=== PATIENT | male | born 1985 | race Caucasian/White ===

== ENCOUNTER → 2019-11-22 09:11 | Outpatient (BNVA) | payer OTHER, SELFPAY | PROVIDERS: PCP Internal Medicine; Visit Provider Internal Medicine Pulmonary Disease | DX: Z13.89 Encounter for screening for other disorder (principal) | CPT/HCPCS: 90686 ==

== ENCOUNTER 2019-11-29 | Outpatient (REF) | payer OTHER, SELFPAY | END 2019-11-29 00:01 | disposition home or self-care (01) | LOC: HO.MDS | PROVIDERS: PCP Internal Medicine; Visit Provider Internal Medicine Pulmonary Disease | DX: J45.50 Severe persistent asthma, uncomplicated (principal) | CPT/HCPCS: J2357 ==

== ENCOUNTER 2019-12-13 09:33 | Outpatient (REF) | payer OTHER, SELFPAY | END 2019-12-13 09:34 | disposition home or self-care (01) | LOC: HO.MDS 09:33 | PROVIDERS: PCP Internal Medicine; Visit Provider Internal Medicine Pulmonary Disease | DX: J45.50 Severe persistent asthma, uncomplicated (principal) | CPT/HCPCS: 96372; J2357 ==

== ENCOUNTER 2019-12-27 09:41 | Outpatient (REF) | payer OTHER, SELFPAY | END 2019-12-27 09:42 | disposition home or self-care (01) | LOC: HO.MDS 09:41 | PROVIDERS: PCP Internal Medicine; Visit Provider Internal Medicine Pulmonary Disease | DX: J45.909 Unspecified asthma, uncomplicated (principal) | CPT/HCPCS: 96372; J2357 ==

== ENCOUNTER 2020-01-10 09:34 | Outpatient (REF) | payer OTHER, SELFPAY | END 2020-01-10 09:35 | disposition home or self-care (01) | LOC: HO.MDS 09:34 | PROVIDERS: PCP Internal Medicine; Visit Provider Internal Medicine Pulmonary Disease | DX: J45.909 Unspecified asthma, uncomplicated (principal) | CPT/HCPCS: 96372; J2357 ==

== ENCOUNTER 2020-01-24 09:28 | Outpatient (REF) | payer OTHER, SELFPAY | END 2020-01-24 09:29 | disposition home or self-care (01) | LOC: HO.MDS 09:28 | PROVIDERS: PCP Internal Medicine; Visit Provider Internal Medicine Pulmonary Disease | DX: J45.909 Unspecified asthma, uncomplicated (principal) | CPT/HCPCS: 96372; J2357 ==

== ENCOUNTER 2020-02-07 09:44 | Outpatient (REF) | payer OTHER, SELFPAY | END 2020-02-07 09:45 | disposition home or self-care (01) | LOC: HO.MDS 09:44 | PROVIDERS: PCP Internal Medicine; Visit Provider Internal Medicine Pulmonary Disease | DX: J45.50 Severe persistent asthma, uncomplicated (principal) | CPT/HCPCS: 96372; J2357 ==

== ENCOUNTER 2020-02-24 13:10 | Outpatient (REF) | payer OTHER, SELFPAY | END 2020-02-24 13:11 | disposition home or self-care (01) | LOC: HO.MDS 13:10 | PROVIDERS: PCP Internal Medicine; Visit Provider Internal Medicine Pulmonary Disease | DX: J45.50 Severe persistent asthma, uncomplicated (principal) | CPT/HCPCS: 96372; J2357 ==

== ENCOUNTER → 2020-03-06 10:51 | Outpatient (BNVA) | payer OTHER, SELFPAY | PROVIDERS: PCP Internal Medicine; Visit Provider Internal Medicine Pulmonary Disease | DX: Z76.89 Persons encountering health services in other specified circumstances (principal) ==

== ENCOUNTER 2020-03-13 09:49 | Outpatient (REF) | payer OTHER, SELFPAY | END 2020-03-13 09:50 | disposition home or self-care (01) | LOC: HO.MDS 09:49 | PROVIDERS: PCP Internal Medicine; Visit Provider Internal Medicine Pulmonary Disease | DX: J45.50 Severe persistent asthma, uncomplicated (principal) | CPT/HCPCS: 96372; J2357 ==

== ENCOUNTER 2020-03-27 09:45 | Outpatient (REF) | payer OTHER, SELFPAY | END 2020-03-27 09:46 | disposition home or self-care (01) | LOC: HO.MDS 09:45 | PROVIDERS: PCP Internal Medicine; Visit Provider Internal Medicine Pulmonary Disease | DX: J45.50 Severe persistent asthma, uncomplicated (principal) | CPT/HCPCS: 96372; J2357 ==

== ENCOUNTER 2020-04-10 09:38 | Outpatient (REF) | payer OTHER, SELFPAY | END 2020-04-10 09:39 | disposition home or self-care (01) | LOC: HO.MDS 09:38 | PROVIDERS: Visit Provider Internal Medicine Pulmonary Disease | DX: J45.50 Severe persistent asthma, uncomplicated (principal) | CPT/HCPCS: 96372; J2357 ==

== ENCOUNTER 2020-04-24 10:02 | Outpatient (REF) | payer OTHER, SELFPAY | END 2020-04-24 10:03 | disposition home or self-care (01) | LOC: HO.MDS 10:02 | PROVIDERS: Visit Provider Internal Medicine Pulmonary Disease | DX: J45.50 Severe persistent asthma, uncomplicated (principal) | CPT/HCPCS: 96372; J2357 ==

== ENCOUNTER 2020-05-26 11:46 | Outpatient (REF) | payer OTHER, SELFPAY ==
[2020-05-26 12:27] LABS: MANUAL DIFF FLAG NO
[2020-05-26 12:31] LABS: Basophils Absolute Auto 0.1 X10*3/uL (0.0-0.2); Basophils Percent Auto 0.6 % (0-2); Eosinophils Absolute Auto 0.1 X10*3/uL (0.0-0.4); Eosinophils Percent Auto 1.5 % (0-4); Hematocrit 51.5 % (42-52); Hemoglobin 16.9 g/dl (14.0-18.0); Imm Gran Abs Auto 0.06 X10*3/uL (0.00-0.03); Imm Gran Pct Auto 0.6 % (0.0-0.4); Lymphocytes Absolute Auto 1.3 X10*3/uL (1.2-4.9); Lymphocytes Percent Auto 13.4 % (20-40); Mean Corpuscular HGB Conc 32.8 g/dl (31.0-36.0); Mean Corpuscular Hemoglobin 30.7 pg (27.0-33.0); Mean Corpuscular Volume 93.5 fL (80-98); Mean Platelet Volume 11.2 fL (9.4-12.4); Monocytes Absolute Auto 0.7 X10*3/uL (0.1-1.2); Monocytes Percent Auto 7.8 % (2-11); Neutrophils Absolute Auto 7.2 X10*3/uL (2.0-8.3); Neutrophils Percent Auto 76.1 % (45-73); Platelet Count 286 X10*3/uL (160-400); Red Blood Count 5.51 X10*6/uL (4.60-5.80); Red Cell Distribution Width 13.5 % (11.0-16.0); White Blood Count 9.5 X10*3/uL (4.8-10.8)
== END 2020-05-26 11:47 | disposition home or self-care (01) ==
LOC: HO.LAB 11:46
PROVIDERS: PCP Internal Medicine; Visit Provider Internal Medicine Pulmonary Disease
DX: J30.89 Other allergic rhinitis (principal)
CPT/HCPCS: 36415; 85025

== ENCOUNTER → 2020-08-21 11:02 | Outpatient (BNVA) | payer OTHER, SELFPAY | PROVIDERS: PCP Internal Medicine; Visit Provider Internal Medicine Pulmonary Disease ==

== ENCOUNTER → 2020-10-02 09:56 | Outpatient (BNVA) | payer OTHER, SELFPAY | PROVIDERS: PCP Internal Medicine; Visit Provider Internal Medicine Pulmonary Disease ==

== ENCOUNTER → 2021-03-02 13:06 | Outpatient (BNVA) | payer OTHER, SELFPAY | PROVIDERS: PCP Internal Medicine; Visit Provider Internal Medicine Pulmonary Disease | DX: J45.50 Severe persistent asthma, uncomplicated (principal); J30.89 Other allergic rhinitis; Z79.899 Other long term (current) drug therapy | CPT/HCPCS: 94618 ==

== ENCOUNTER 2022-10-07 15:31 | Outpatient (REF) | payer OTHER, SELFPAY ==
[2022-10-07 18:27] LABS: Alanine Aminotransferase 40 U/L (0-40); Albumin Level 4.4 g/dL (3.5-5.0); Alkaline Phosphatase 42 U/L (39-117); Anion Gap 11 (12-20); Aspartate Amino Transferase 24 U/L (5-37); Bilirubin Direct 0.2 mg/dL (0.0-0.5); Bilirubin Total 0.4 mg/dL (0.0-1.0); Blood Urea Nitrogen 18 mg/dL (9-16); Calcium 9.8 mg/dL (8.4-10.2); Carbon Dioxide 28 mmol/L (22-29); Chloride 106 mmol/L (96-108); Estimated Glomerular Filt Rate > 60; Glucose Random 68 mg/dL (60-115); Potassium 3.3 mmol/L (3.3-5.1); Sodium 142 mmol/L (135-145); Total Protein 7.3 g/dL (6.5-8.0)
== END 2022-10-07 15:32 | disposition home or self-care (01) ==
LOC: HO.CHCLDS 15:31
PROVIDERS: Visit Provider Internal Medicine
DX: I10 Essential (primary) hypertension (principal)
CPT/HCPCS: 36415; 80048; 80076

== ENCOUNTER 2023-02-10 09:25 | Outpatient (AMB) | payer OTHER, SELFPAY ==
[2023-02-10 09:30] VITALS: BP 122/84; PULSE 72; O2SAT 97; BMI 28.0
--- NOTE | 2023-02-10 09:30 | A.OFFVIS_ITS ---
Intake Vital Signs 02/10/23 09:30 Height 6 ft 2 in Weight 218 lb 4.122 oz BMI 28.0 BP 122/84 Blood Pressure Location Rt brachial Position Sitting Pulse 72 Pulse Source Doppler Pulse Oximetry (%) 97 Oxygen Delivery Method Room Air Intake Visit Reasons: Asthma Allergies No Known Allergies [No Known Allergies*] Allergy (Verified 02/10/23 09:34) HPI Asthma HPI Details 37-year-old gentleman, former approximat lee 10 pack year smoker, quit 2018 followed for environmental and seasonal allergies and severe persistent asthma, diagnosed at 7 years of age.? He has been using Advair 500, Singulair, and albuterol MDI, previously with good control of his symptoms. However, recently he has ran out of Advair in his symptoms have not been well controlled. Though, he denies an acute exacerbation. [facility] Family History (Updated 11/16/19 @ 10:22 by Brenda Ayers, SCIENCE TE[employer]) Other No family history of chronic obstructive pulmonary disease Social History Years Smoked: 8-10 years ago Review of Systems Const Denies daytime sleepiness, Denies excessive sweating, Denies fatigue, Denies fever(s), Denies lethargy, Denies malaise, Denies night sweats, Denies snoring and Denies weight loss Eyes Denies blurry vision and Denies itchy eyes ENT Denies nasal congestion, Denies post nasal drip, Denies sinus pain, Denies sinus pressure and Denies other ( Thrush) Card Denies chest pain, Denies pedal edema, Denies dyspnea, Denies orthopnea and Denies paroxysmal nocturnal dyspnea Resp Denies cough, Denies hemoptysis, Denies excessive phlegm production, Denies dyspnea, Denies snoring and Denies wheezing GI Denies abdominal pain and Denies heartburn Musc Denies myalgias, Denies arthralgias and Denies joint swelling Skin/Breast Denies rash Neuro Denies memory loss and Denies seizure-like activity Psych Denies abnormal sleep pattern, Denies anxiety and Denies memory loss Endo Denies excessive sweating, Denies fatigue and Denies heat intolerance Gregory/Lymph Denies easy bruising Aller/Immun Denies itchy eyes, Denies seasonal rhinorrhea and Denies wheezing Physical Exam Vital Signs: Last Vital Signs Pulse 72 02/10/23 09:30 BP 122/84 02/10/23 09:30 Pulse Ox 97 02/10/23 09:30 Oxygen Delivery Method Room Air 02/10/23 09:30 BMI result Body Mass Index 28.0 Const General: no acute distress and alert Nutritional Appearance: not obese Orientation/consciousness: Other orientation findings ( oriented) HEENT Head: Yes atraumatic Eyes General: appearance normal, both eyes and all related structures Sclerae: sclerae normal EOM: EOMs intact bilaterally Neck Neck: Yes supple Lymphatic: no lymphadenopathy noted Resp Effort & Inspection: normal respiratory effort and no use of accessory muscles Auscultation: clear to auscultation bilaterally Cardio Rate: regular rate Rhythm: regular rhythm Heart sounds: no gallops, no murmurs and no rubs Skin General skin exam: other ( warm) Extrem General: No clubbing, No cyanosis and No edema Assessment & Plan Assessment & Plan (1) Severe persistent allergic asthma: Code(s): J45.50 - Severe persistent asthma, uncomplicated Plan: Now suboptimally controlled as patient has ran out of Advair. Restart Advair. Continue albuterol MDI. (2) Environmental and seasonal allergies: Code(s): J30.89 - Other allergic rhinitis Plan: Baseline controlled on Singulair. Continue current regimen. Medications: Refilled fluticasone propion-salmeterol 500-50 mcg/dose (Advair Diskus) 1 ea PO BID 60 ea 6RF J45.50 - Severe persistent asthma, uncomplicated Coding Level of Care Code Est Pt Level 4 (89294) Diagnoses Severe persistent allergic asthma J45.50 Environmental and seasonal allergies J30.89
== END 2023-02-10 09:52 | disposition home or self-care (01) ==
PROVIDERS: PCP Internal Medicine; Visit Provider Internal Medicine Pulmonary Disease
DX: J45.50 Severe persistent asthma, uncomplicated (principal); J30.89 Other allergic rhinitis
CPT/HCPCS: 99214

== ENCOUNTER → 2023-02-10 09:25 | Outpatient (BNVA) | payer OTHER, SELFPAY | PROVIDERS: PCP Internal Medicine; Visit Provider Internal Medicine Pulmonary Disease ==

== ENCOUNTER 2023-12-01 08:55 | Outpatient (AMB) | payer OTHER, SELFPAY ==
[2023-12-01 08:58] VITALS: BP 128/77; PULSE 79; O2SAT 95; BMI 28.0
--- NOTE | 2023-12-01 08:58 | MHC.OFFVIS ---
Vital Signs 12/01/23 08:58 Height 6 ft 2 in Weight 218 lb 4.122 oz BMI 28.0 BP 128/77 Blood Pressure Location Rt brachial Position Sitting Pulse 79 Pulse Source Doppler Pulse Oximetry (%) 95 Oxygen Delivery Method Room Air Intake Visit Reasons: asthma Allergies No Known Allergies [No Known Allergies*] Allergy (Verified 12/01/23 09:01) HPI HPI asthma: Details: 38-year-old gentleman, former approximately 10 pack year smoker, quit 2018 followed for environmental and seasonal allergies and severe persistent asthma, diagnosed at 7 years of age.? His symptoms previously well controlled on Breo and albuterol MDI. Unfortunately, patient has ran out of his Breo with the last month with worsening his symptom control. Patient also has stopped using Singulair as he does not think it provide any symptomatic benefit. He denies acute exacerbations. [facility] Medical History (Updated 12/01/23 @ 09:21 by Teresa Whatley PA-C) Severe persistent allergic asthma Environmental and seasonal allergies Family History (Updated 11/16/19 @ 10:22 by Brenda Ayers, DRAW FRAME TENDER) Other No family history of chronic obstructive pulmonary disease Social History Years Smoked: 8-10 years ago Review of Systems Const Denies daytime sleepiness, Denies excessive sweating, Denies fatigue, Denies fever(s), Denies lethargy, Denies malaise, Denies night sweats, Denies snoring and Denies weight loss Eyes Denies blurry vision and Denies itchy eyes ENT Denies nasal congestion, Denies post nasal drip, Denies sinus pain, Denies sinus pressure and Denies other ( Thrush) Card Denies chest pain, Denies pedal edema, Denies dyspnea, Denies orthopnea and Denies paroxysmal nocturnal dyspnea Resp Denies cough, Denies hemoptysis, Denies excessive phlegm production, Denies dyspnea, Denies snoring and Denies wheezing GI Denies abdominal pain and Denies heartburn Musc Denies myalgias, Denies arthralgias and Denies joint swelling Skin/Breast Denies rash Neuro Denies memory loss and Denies seizure-like activity Psych Denies abnormal sleep pattern, Denies anxiety and Denies memory loss Endo Denies excessive sweating, Denies fatigue and Denies heat intolerance Gregory/Lymph Denies easy bruising Aller/Immun Denies itchy eyes, Denies seasonal rhinorrhea and Denies wheezing Physical Exam Vital Signs: Last Vital Signs Pulse 79 12/01/23 08:58 BP 128/77 12/01/23 08:58 Pulse Ox 95 12/01/23 08:58 Oxygen Delivery Method Room Air 12/01/23 08:58 BMI result Body Mass Index 28.0 Const General: no acute distress and alert Nutritional Appearance: not obese Orientation/consciousness: Other orientation findings ( oriented) HEENT Head: Yes atraumatic Eyes General: appearance normal, both eyes and all related structures Sclerae: sclerae normal EOM: EOMs intact bilaterally Neck Neck: Yes supple Lymphatic: no lymphadenopathy noted Resp Effort & Inspection: normal respiratory effort and no use of accessory muscles Auscultation: clear to auscultation bilaterally Cardio Rate: regular rate Rhythm: regular rhythm Heart sounds: no gallops, no murmurs and no rubs Skin General skin exam: other ( warm) Extrem General: No clubbing, No cyanosis and No edema Assessment & Plan Assessment & Plan (1) Severe persistent allergic asthma: Code(s): J45.50 - Severe persistent asthma, uncomplicated Category: Medical Plan: Suboptimal control as patient has ran out of Breo. Restart Breo and continue albuterol MDI. (2) Environmental and seasonal allergies: Code(s): J30.89 - Other allergic rhinitis Category: Medical Plan: No symptomatic response to Singulair. If not improving with restarting Breo, will consider immunologic therapy. Medications: Changed From fluticasone furoate-vilanterol 200-25 mcg/dose (Breo Ellipta) 1 inh inhalation DAILY 90 days 3 ea 0RF To fluticasone furoate-vilanterol 200-25 mcg/dose (Breo Ellipta) 1 inh inhalation DAILY 3 ea 6RF 30 days Coding Level of Care Code Est Pt Level 4 (89127) Diagnoses Severe persistent allergic asthma J45.50 Environmental and seasonal allergies J30.89
== END 2023-12-01 09:35 | disposition home or self-care (01) ==
PROVIDERS: PCP Internal Medicine; Visit Provider Internal Medicine Pulmonary Disease
DX: J45.50 Severe persistent asthma, uncomplicated (principal); J30.89 Other allergic rhinitis
CPT/HCPCS: 99214

== ENCOUNTER → 2023-12-01 08:55 | Outpatient (BNVA) | payer OTHER, SELFPAY | PROVIDERS: PCP Internal Medicine; Visit Provider Internal Medicine Pulmonary Disease ==

== ENCOUNTER 2024-04-18 14:34 | Outpatient (REF) | payer OTHER, SELFPAY ==
--- OUTSIDE RECORDS SUMMARY | 2024-04-18 17:50 | XMS_ITS | Encounter Summary ---
Author Organization [employer] Address [address] [place] [id number] Care Team Providers Care Gage Maker Name Role Phone Kameron Kenney MD Primary Care Provider [phone] Reason for Visit * Reason Comments Med Refill Encounter Details Date Type Department Care Team ([facility] Contact Info) Description 11/14/2022 Refill [facility] MED & PEDS [address] [place] [address] Kameron Kenney MD [address] [place] [address] Social History Tobacco Use Types Packs/Day Years Used Date Smoking Tobacco: Former Cigarettes 1 2016 Smokeless Tobacco: Current Comments:Vape Sex and Gender Information Value Date Recorded Sex Assigned at Male 12/20/2021 10:35 AM EDT Legal Sex Male 10:35 AM EDT Gender Identity Male 12/20/2021 10:35 AM EDT Sexual Orientation Choose not to disclose 2021 10:35 AM EDT documented as of this encounter Plan of Treatment Upcoming Encounters Date Type Department Care Team ([facility] Contact Info) Description 07/18/2024 2:00 PM EDT Office Visit [facility] MED & PEDS [address] [place] [address] Kameron Kenney MD [address] [place] [address] documented as of this encounter Visit Diagnoses Not on filedocumented in this encounter Care Teams Gage Maker Relationship Specialty Start Date End Date Kameron Kenney MD [address] [place] [id number] PCP - General Internal Medicine 09/05/18 documented as of this encounter
--- OUTSIDE RECORDS SUMMARY | 2024-04-18 17:50 | XMS_ITS | Encounter Summary ---
Author Organization [employer] Address [address] [facility] [place] [address] Care Team Providers Care Cocoa Room Operator Name Role Phone Kameron Kenney MD Primary Care Provider [phone] Encounter Details Date Type Department Care Team (Latest Contact Info) Description 04/18/2024 Travel Social History Tobacco Use Types Packs/Day Years Used Date Smoking Tobacco: Former Cigarettes - 2016 Smokeless Tobacco: Current Comments:Vape Housing Stability Answer Date Recorded What is your housing situation today? I have jose wilcox 05/10/[address] you li ve. Do you have problems with any of the following? None of the above 05/10/2023 Food Insecurity Answer Date Recorded Within the past 12 months, y ou worried that your food would run out before you got money to buy more: Never True 05/10/2023 Within the past 12 months,th e food you bought just didn't last and you didn't have enough money to get more: Never True Transportation Answer Date Recorded In the past 12 months, has l ack of transportation kept you from medical appts, meetings, work or from getting things needed for daily living? No 05/10/2023 Utilities Answer Date Recorded In the past 12 months, has t he electric, gas, oil or water company threatened to shut off services in your home? No 05/10/2023 Sex and Gender Information Value Date Recorded Sex Assigned at Male 12/20/2021 10:35 AM EDT Legal Sex Male 10:35 AM EDT Gender Identity Male 12/20/2021 10:35 AM EDT Sexual Orientation Choose not to disclose 2021 10:35 AM EDT documented as of this encounter Plan of Treatment Upcoming Encounters Date Type Department Care Team (Late st Contact Info) Description 07/18/2024 2:00 PM EDT Office Visit [facility] MED & PEDS [address] [place] [address] Kameron Kenney MD [address] [place] [address] documented as of this encounter Visit Diagnoses Not on filedocumented in this encounter Care Teams Cocoa Room Operator Relationship Specialty Start Date End Date Kameron Kenney MD [address] [place] [address] PCP - General Internal Medicine 09/05/18 documented as of this encounter
--- OUTSIDE RECORDS SUMMARY | 2024-04-18 17:50 | XMS_ITS | Clinical Summary ---
Author Organization [employer] Address [address] [facility] 7t [place] [address] Care Team Providers Care Screwmaker Automatic Name Role Phone Kameron Kenney MD Primary Care Provider [phone] Allergies Active Allergy Reactions Criticality Noted Date Comments Edilma Morfinon (Israeli Melon) Swelling,Unknown 01/16/2017 Shellfish-Derived Products Hives 1 Medications varenicline (Chantix) 1 MG tabletIndications :Vaping nicotine dependence, non-tobacco product Take 0.5 tablets (0.5 mg) by mouth 2 times daily. Take with full glass of water.Days 1 to 3: 0.5 mg once daily. Days 4 to 7: 0.5 mg twice daily. 11 tablet 1 3 Active valACYclovir (Valtrex) 500 MG tabletIndications :Herpes TAKE 1 TABLET BY MOUTH TWICE DAILY FOR 3 DAYS 6 tablet 4 Active Breo Ellipta 200-25 MCG/ACT aerosol powder Inhale 1 puff Once per day. 4 Active Montelukast Sodium (SINGULAIR PO) Take 10 mg by mouth. 0 Active valACYclovir (Valtrex) 500 MG tabletIndications :Herpes Take 1 tablet (500 mg) by mouth Once per day. 30 tablet 11 4 08/12/19 25 Active verapamil ER (Verelan PM) 100 MG 24 hr capsuleIndication s:Primary hypertension Take 1 capsule (100 mg) by mouth at bedtime. 30 capsule 11 4 08/12/19 25 Active imiquimod (Aldara) 5 % creamIndications: Genital warts Apply 1 packet topically 3 (three) times a week. 12 packet 11 4 08/18/19 25 Active fluconazole (Diflucan) 100 MG tabletIndications :Perianal candidiasis Take 1 tablet (100 mg) by mouth Once per day for 10 days. 10 tablet 5 04/29/19 25 Active nystatin (Mycostatin) 302633 UNIT/GM powderIndications :Perianal candidiasis Apply topically 2 times daily. 30 g 5 04/18/19 26 Active terbinafine (LamISIL) 250 MG tabletIndications :Onychomycosis Take 1 tablet (250 mg) by mouth Once per day for 14 days. 14 tablet 5 05/03/19 25 Active Active Problems Problem Noted Date Diagnosed Date Genital warts 10/07/2022 Hypertensive disorder 12/25/2020 Encounters Date Type Department Care Team Description 04/18/2024 1:45 PM EST Office Visit [facility] MED & PEDS [address] [place] [address] Kameron Kenney MD Genital warts (Primary Dx); Perianal candidiasis; Onychomycosis; Primary hypertension 04/18/2024 Travel 04/15/2024 Telephone [facility] MED & PEDS [address] [place] [address] Kameron Degroot MD Nurse Triage 03/21/2024 Telephone [facility] MED & PEDS [address] [place] [address] Kameron Kenney MD 03/12/2024 Telephone [facility] MED [facility] PED[facility] [address] [place] [address] Kameron Kenney MD Nurse Triage from Last 3 Months Family History Medical History Relation Name Comments Diabetes type II Father Hypertension Father Asthma Maternal Grandfather Diabetes type II Maternal Grandfather Diabetes type II Paternal Grandmother Relation Name Status Comments Father Maternal Grandfather Paternal Grandmother Social History Tobacco Use Types Packs/Day Years Used Date Smoking Tobacco: Former Cigarettes 1 12 2 - 2016 Smokeless Tobacco: Current Tobacco Cessation:Ready to Q uit: Not Asked; Counseling Given: Not Answered Comments:Vape Housing Stability Answer Date Recorded What [...] not to disclose 2021 10:35 AM EDT Last Filed Vital Signs Vital Sign Reading Time Taken Comments Blood Pressure 150/90 04/18/2024 1:44 PM EST Pulse 78 04/18/2024 1:44 PM EST Temperature 36.6 ??C (97.9 ??F) 04/18/2024 1:44 PM ES T Respiratory Rate 20 04/18/2024 1:44 PM EST Oxygen Saturation 98% 04/18/2024 1:44 PM EST Inhaled Oxygen Concentration - - Weight 100 kg (221 lb) 04/18/2024 1:44 PM EST Height 189 cm (6' 2.41 ) 04/18/2024 1:44 PM EST Body Mass Index 28.06 04/18/2024 1:44 PM EST Plan of Treatment Upcoming Encounters Date Type Department Care Team (Late st Contact Info) Description 07/18/2024 2:00 PM EDT Office Visit [facility] MED & PEDS [address] [place], [place] [phone] Kameron Kenney MD [address] [place] [address] Health Maintenance Due Date Last Done Comments Depression Screening 1984 HIV Screening 1984 Lipid Panel 1984 Family Planning (PISQ) 10/29/1999 Hepatitis A Vaccines (1 of 2 - Risk 2-dose series) 10/29/2003 Pneumococcal Vaccine: Pediatrics (0 to 5 Years) and At-Risk Patients (6 to 49) Years) (2 of 2 - PCV) 07/12/2018 07/12/2017 COVID-19 Vaccine (1 - 2023- season) 2023 Influenza Vaccine (#1) 2023 11/09/2021, 2020 SDOH Screening 05/09/2024 05/10/2023 Alcohol/Substance Use Screening 04/18/2025 04/18/2024 Tobacco Screening 04/18/2025 04/18/2024 DTaP/Tdap/Td Vaccines (7 - Td or Tdap) 07/13/2027 07/12/2017, 10/21/1989, 06/20/1986, Additional history exists Zoster Vaccines (1 of 2) 2034 RSV Patients and Patients Aged 60 years or older (1 - 1-dose 75+ series) 10/29/2059 HIB Vaccines Completed 12/11/1986 IPV Vaccines Completed 10/21/1989, 10/21, 10/07/1985, Additional history exists Hepatitis B Vaccines Completed 05/27/1997, 01/21/1997, 12/17/1996 HPV Vaccines Aged Out No longer eligi ble based on patient's age to complete this topic Meningococcal Vaccine Aged Out No mis silas eligible based on patient's age to complete this topic RSV under 20 months Aged Out No longe r eligible based on patient's age to complete this topic Rotavirus Vaccines Aged Out No longer eligible based on patient's age to complete this topic Insurance , [address] [place] [address] Care Teams Screwmaker Automatic Relationship Specialty Start Date End Date Kameron Kenney MD [address] [place] [id number] PCP - General Internal Medicine 09/05/18
--- OUTSIDE RECORDS SUMMARY | 2024-04-18 17:50 | XMS_ITS | Encounter Summary ---
Author Organization [employer] Address [address] [address] Care Team Providers Care Lean Engineer Name Role Phone Kameron Kenney MD Primary Care Provider [phone] Reason for Visit * Reason Onset Date Comments Med Refill 04/13/2023 Encounter Details Date Type Department Care Team (Late st Contact Info) Description 04/13/2023 Telephone [facility] MEDICINE [address] [place] [address] Kameron Kenney MD [address] [place] [id number] Med Refill Social History Tobacco Use Types Packs/Day Years Used Date Smoking Tobacco: Former Cigarettes 1 12 2 - 2016 Smokeless Tobacco: Current Comments:Vape Sex and Gender Information Value Date Recorded Sex Assigned at Male 12/20/2021 10:35 AM EDT Legal Sex Male 10:35 AM EDT Gender Identity Male 12/20/2021 10:35 AM EDT Sexual Orientation Choose not to disclose 2021 10:35 AM EDT documented as of this encounter Miscellaneous Notes * Telephone Encounter - Luz Marina Low LPN - 04/14/2023 10:05 AM EST Medication pended to PCP. * Telephone Encounter - Leisa Morfin - 04/13/2023 1:08 PM EST TC from pt requesting medication refill. Medications needing refill : valACYclovir (Valtrex) 500 MG tablet To be sent to: [facility]/pharmacy #[id number] - [place], [place] - [address] documented in this encounter Plan of Treatment Upcoming Encounters Date Type Department Care Team ([facility] st Contact Info) Description 07/18/2024 2:00 PM EDT Office Visit [facility] MED & PEDS [address] [place] [address] Kameron Kenney MD [address] [place] [address] documented as of this encounter Visit Diagnoses Not on filedocumented in this encounter Care Teams Lean Engineer Relationship Specialty Start Date End Date Kameron Kenney MD [address] [place] [address] PCP - General Internal Medicine 09/05/18 documented as of this encounter
--- OUTSIDE RECORDS SUMMARY | 2024-04-18 17:51 | XMS_ITS | Encounter Summary ---
Author Organization [employer] Address [address] [place] [address] Care Team Providers Care Spot Welder Body Assembly Name Role Phone Kameron Kenney MD Primary Care Provider [phone] Reason for Visit * Reason Onset Date Comments requesting call back 02/04/2022 Encounter Details Date Type Department Care Team (Late Contact Info) Description 02/04/[address] [facility] MEDICINE [address] [place] [address] Kameron Kenney MD [address] [place] [address] requesting call back Social History Tobacco Use Types Packs/Day Years Used Date Smoking Tobacco: Never Assessed Sex and Gender Information Value Date Recorded Sex Assigned at Male 12/20/2021 10:35 AM EDT Legal Sex Male 10:35 AM EDT Gender Identity Male 12/20/2021 10:35 AM EDT Sexual Orientation Choose not to disclose 2021 10:35 AM EDT documented as of this encounter Miscellaneous Notes * Telephone Encounter - Gisele Barros - 02/09/2022 3:11 PM EST Tc from pt returning call from nurse, please call [phone] documented in this encounter Plan of Treatment Upcoming Encounters Date Type Department Care Team (Late Contact Info) Description 07/18/2024 2:00 PM EDT Office Visit [facility] MED & PEDS [address] [place] [address] Kameron Kenney MD [address] [place] [address] documented as of this encounter Visit Diagnoses Not on filedocumented in this encounter Care Teams Spot Welder Body Assembly Relationship Specialty Start Date End Date Kameron Kenney MD [address] [place] [address] PCP - General Internal Medicine 09/05/18 documented as of this encounter
--- OUTSIDE RECORDS SUMMARY | 2024-04-18 17:51 | XMS_ITS | Encounter Summary ---
Author Organization [employer] Address [address] [facility] [address]t [place] [address] Care Team Providers Care President Ceo & Founder Name Role Phone Kameron Kenney MD Primary Care Provider [phone] Encounter Details Date Type Department Care Team ([facility] st Contact Info) Description 03/21/2024 Telephone [facility] CH[facility] MED & PEDS [address] [place], [place] [phone] Kameron Kenney MD [address] [place], [place] [phone] Social History Tobacco Use Types Packs/Day Years Used Date Smoking Tobacco: Former Cigarettes 2016 Smokeless Tobacco: Current Comments:Vape Housing Stability [...] Upcoming Encounters Date Type Department Care Team ([facility] st Contact Info) Description 07/18/2024 2:00 PM EDT Office Visit [facility] MED & PEDS [address] [place] [address] Kameron Kenney MD [address] [place] [address] documented as of this encounter Visit Diagnoses Not on filedocumented in this encounter Care Teams President Ceo & Founder Relationship Specialty Start Date End Date Kameron Kenney MD [address] [place] [address] PCP - General Internal Medicine 09/05/18 documented as of this encounter
--- OUTSIDE RECORDS SUMMARY | 2024-04-18 17:51 | XMS_ITS | Encounter Summary ---
Author Organization [employer] Address [address] [facility] [address] [address] Care Team Providers Care Compounding Technician Name Role Phone Kameron Kenney MD Primary Care Provider [phone]- [phone] Encounter Details Date Type Department Care Team (Latest Contact Info) Description 10/02/2018 Abstract [facility] CONVERSIONS Dental, Provider, DDS Social History Tobacco Use Types Packs/Day Years [...] Description 07/18/2024 2:00 PM EDT Office Visit [facility]C MED & PEDS [address] [place] [address] Kameron Kenney MD [address] [place] [address] documented as of this encounter Visit Diagnoses Not on filedocumented in this encounter Care Teams Compounding Technician Relationship Specialty Start Date End Date Kameron Kenney MD [address] [place] [address] PCP - General Internal Medicine 09/05/18 documented as of this encounter
--- OUTSIDE RECORDS SUMMARY | 2024-04-18 17:51 | XMS_ITS | Encounter Summary ---
Author Organization [employer] Address [address] [facility] [address] [place] [address] Care Team Providers Care Assembler Wet Wash Name Role Phone Kameron Kenney MD Primary Care Provider [phone] Reason for Visit * Reason Onset Date Comments Nurse Triage 04/15/2024 Encounter Details Date Type Department Care Team ([facility] st Contact Info) Description 04/15/2024 Telephone [facility] CHC MED & PEDS [address] [place] [address] Kameron Kenney MD [address] [place] [address] Nurse Triage Social History Tobacco Use Types Packs/Day Years Used Date Smoking Tobacco: Former Cigarettes 2016 Smokeless Tobacco: Current Comments:Vape Housing Stability Answer Date Recorded What is your housing situation today? I have jose sing 05/10/[address] you li [...] t he electric, gas, oil or water [employer] threatened to shut off services in your home? No 05/10/2023 Sex and Gender Information Value Date Recorded Sex Assigned at Male 12/20/2021 10:35 AM EDT Legal Sex Male 10:35 AM EDT Gender Identity Male 12/20/2021 10:35 AM EDT Sexual Orientation Choose not to disclose 2021 10:35 AM EDT documented as of this encounter Miscellaneous Notes * Telephone Encounter - Erin Rodríguez LPN - 04/15/2024 1:51 PM EST Triage call returned to patient who requests appt with PCP for ongoing issue with genital warts. Patient reports that areas noted over last several days. No bleeding no difficulty voiding or spreading redness. Patient seen by PCP and treatment ordered. Patient has not refilled RX and was unaware ofrefills as listed in chart. Patient will follow with RX. Disposition reviewed and patient in agreement with plan. ASK/PCP on 04/18/24 at 1115am. Protocol Used: Penis and Scrotum Symptoms (Adult) Protocol-Based Disposition: See in Office or Video Visit within 3 Days Positive Triage Question: * ALL other penis - scrotum symptoms (Exception: Painless rash < 24 hours duration.) * All higher-acuity triage questions were negative * Telephone Encounter - Anastasiya Jaquez - 04/15/2024 1:39 PM EST Symptom: Warts - Caller Reports Outcome: Schedule an appointment to be seen within 3 days Reason: This is the only possible outcome for this symptom The caller accepted this outcome. documented in this encounter Plan of Treatment Upcoming Encounters Date Type Department Care Team ([facility] st Contact Info) Description 07/18/2024 2:00 PM EDT Office Visit [facility] MED & PEDS [address] [place] [address] Kameron Kenney MD [address] [place], [place] [phone] documented as of this encounter Visit Diagnoses Not on filedocumented in this encounter Care Teams Assembler Wet Wash Relationship Specialty Start Date End Date Kameron Kenney MD [address] [place] [address] PCP - General Internal Medicine 09/05/18 documented as of this encounter
--- OUTSIDE RECORDS SUMMARY | 2024-04-18 17:51 | XMS_ITS | Encounter Summary ---
Author Organization [employer] Address [address] [facility] [address] [place] [address] Care Team Providers Care Computer Repair Technician Name Role Phone Kameron Kenney MD Primary Care Provider [phone] Reason for Visit * Reason Onset Date Comments Nurse Triage 03/12/2024 Encounter Details Date Type Department Care Team ([facility] st Contact Info) Description 03/12/2024 Telephone [facility] CHC MED & PEDS [address] [place], [place] [phone] Kameron Kenney MD [address] [place] [address] Nurse Triage Social History Tobacco Use Types [...] t he electric, gas, oil or water [employer] threatened to shut off services in your home? No 05/10/2023 Sex and Gender Information Value Date Recorded Sex Assigned at Male 12/20/2021 10:35 AM EDT Legal Sex Male 10:35 AM EDT Gender Identity Male 12/20/2021 10:35 AM EDT Sexual Orientation Choose not to disclose 2021 10:35 AM EDT documented as of this encounter Miscellaneous Notes * Telephone Encounter - Anastasiya Jaquez - 03/12/2024 8:53 AM EST Symptom: Cough, fever ,sore throat and difficulties breathing Outcome: Schedule an appointment to be seen within 24 hours Reason: Caller denied all higher acuity questions The caller accepted this outcome. documented in this encounter Plan of Treatment Upcoming Encounters Date Type Department Care Team (Late st Contact Info) Description 07/18/2024 2:00 PM EDT Office Visit [facility] MED & PEDS [address] [place] [address] Kameron Kenney MD [address] [place] [address] documented as of this encounter Visit Diagnoses Not on filedocumented in this encounter Care Teams Computer Repair Technician Relationship Specialty Start Date End Date Kameron Kenney MD [address] [place] [address] PCP - General Internal Medicine 09/05/18 documented as of this encounter
--- OUTSIDE RECORDS SUMMARY | 2024-04-18 17:51 | XMS_ITS | Encounter Summary ---
Author Organization [employer] Address [address] [facility] [address] [address] Care Team Providers Care Wood Gluer Name Role Phone Kameron Kenney MD Primary Care Provider [phone] Encounter Details Date Type Department Care Team ([facility] Contact Info) Description 02/10/2022 Orders Only [facility] MEDICINE [address] [place] [address] Kameron Kenney MD [address] [place] [address] Herpes (Primary Dx) Social History Tobacco Use Types Packs/Day Years [...] Description 07/18/2024 2:00 PM EDT Office Visit [facility] CHC MED & PEDS [address] [place], [place] [phone] Kameron Kenney MD [address] [place] [address] documented as of this encounter Visit Diagnoses Diagnosis Herpes- Primary Herpes simplex without mention of complication documented in this encounter Care Teams Wood Gluer Relationship Specialty Start Date End Date Kameron Kenney MD [address] [place] [address] PCP - General Internal Medicine 09/05/18 documented as of this encounter
--- OUTSIDE RECORDS SUMMARY | 2024-04-18 17:51 | XMS_ITS | Encounter Summary ---
Author Organization [employer] Address [address] [facility] [address] [address] Care Team Providers Care Nuclear Powerplant Mechanic Name Role Phone Kameron Kenney MD Primary Care Provider [phone]- [phone] Encounter Details Date Type Department Care Team ([facility] Contact Info) Description 10/18/2022 Orders Only [facility] MED & PEDS [address] [place] [address] Kameron Kenney MD [address] [place] [address] Vaping nicotine dependence, non-tobacco product Social History Tobacco Use Types Packs/Day Years [...] Upcoming Encounters Date Type Department Care Team ([facility] Contact Info) Description 07/18/2024 2:00 PM EDT Office Visit [facility] MED & PEDS [address] [place] [address] Kameron Kenney MD [address] [place] [address] documented as of this encounter Visit Diagnoses Diagnosis Vaping nicotine dependence, non-tobacco product documented in this encounter Care Teams Nuclear Powerplant Mechanic Relationship Specialty Start Date End Date Kameron Kenney MD [address] [place] [id number] PCP - General Internal Medicine 09/05/18 documented as of this encounter
--- OUTSIDE RECORDS SUMMARY | 2024-04-18 17:51 | XMS_ITS | Encounter Summary ---
Author Organization [employer] Address [address] [facility] [address] [place] [address] Care Team Providers Care Leadership Intern Name Role Phone Kameron Kenney MD Primary Care Provider [phone] Reason for Visit * Reason Comments Multiple concerns Encounter Details Date Type Department Care Team ([facility] Contact Info) Description 04/18/2024 1:45 PM EST Office Visit [facility] CHC MED & PEDS [address] [place], [place] [phone] Kameron Kenney MD [address] [place] [address] Genital warts (Primary Dx); Perianal candidiasis; Onychomycosis; Primary hypertension Social History Tobacco Use Types Packs/Day Years Used Date Smoking Tobacco: Former Cigarettes 1 2016 Smokeless Tobacco: Current Comments:Vape Housing Stability [...] the past 12 months, has t he [facility], [employer], oil or water [employer] threatened to shut off services in your home? No 05/10/2023 Sex and Gender Information Value Date Recorded Sex Assigned at Male 12/20/2021 10:35 AM EDT Legal Sex Male 10:35 AM EDT Gender Identity Male 12/20/2021 10:35 AM EDT Sexual Orientation Choose not to disclose 2021 10:35 AM EDT documented as of this encounter Last Filed Vital Signs Vital Sign Reading [...] Mass Index 28.06 04/18/2024 1:44 PM EST documented in this encounter Progress Notes * Kameron Kenney MD - 04/18/2024 1:45 PM EST Subjective Patient ID: Brett aBum is a 38 y.o. male who presents for Multiple concerns. HPI 1) history of genital warts. Prescribed imiquimod. Patient was not sure that he had a refill. When he called the office he did not have the refill. He started using it with improvement. The lesions are pretty much resolved now 2) history of genital herpes. No recent outbreak. 3) perianal itchiness for over a year. Resolved. Patient states that he goes to the gym regularly and get very sweaty and has felt an achiness of the perianal area. It started about 2 months ago. 4) history of hypertension. On verapamil which caused shortness of breath. Patient has stopped it several months ago. Multiple medications tried in the past including a diuretic, an NERY inhibitor, and an ARB, all not well-tolerated. 5) history of venous insufficiency. Patient is compliant with his compression stockings. Reports less heaviness of the legs after a day of work. Patient Active Problem List Diagnosis Genital warts Hypertensive disorder Current Outpatient Medications on File Prior to Visit Medication Sig Dispense Refill Breo Ellipta 200-25 MCG/ACT aerosol powder Inhale 1 puff Once per day. imiquimod (Aldara) 5 % cream Apply 1 packet topically 3 (three) times a week. 12 packet 11 Montelukast Sodium (SINGULAIR PO) Take 10 mg by mouth. valACYclovir (Valtrex) 500 MG tablet TAKE 1 TABLET BY MOUTH TWICE DAILY FOR 3 DAYS 6 tablet 0 valACYclovir (Valtrex) 500 MG tablet Take 1 tablet (500 mg) by mouth Once per day. 30 tablet 11 varenicline (Chantix) 1 MG tablet Take 0.5 tablets (0.5 mg) by mouth 2 times daily. Take with full glass of water.Days 1 to 3: 0.5 mg once daily. Days 4 to 7: 0.5 mg twice daily. 11 tablet 1 verapamil ER (Verelan PM) 100 MG 24 hr capsule Take 1 capsule (100 mg) by mouth at bedtime. 30 capsule 11 No current facility-administered medications on file prior to visit. Allergies Allergen Reactions Charentais Melon (Kazakh Melon) Swelling and Unknown Shellfish-Derived Products Hives Review of Systems Constitutional: Negative for appetite change, chills and diaphoresis. Respiratory: Negative for cough, choking and chest tightness. Cardiovascular: Negative for leg swelling. Musculoskeletal: Negative for gait problem and joint swelling. Skin: Positive for rash. Objective Physical Exam Constitutional: General: He is not in acute distress. Appearance: Normal appearance. He is not ill-appearing, toxic-appearing or diaphoretic. Cardiovascular: Rate and Rhythm: Normal rate. Pulmonary: Effort: Pulmonary effort is normal. Skin: Comments: 1) perianal erythema poorly demarcated. No oozing. 2) multiple erythematous papules of the shaft of the penis and of the scrotum status post treatmentwith imiquimod. 3) yellowish discoloration with subungual hyper keratosis of the fourth right toenail. Neurological: Mental Status: He is alert. Assessment/Plan Diagnoses and all orders for this visit: Genital warts Comments: Patient deferred cryotherapy for now Perianal candidiasis - fluconazole (Diflucan) 100 MG tablet; Take 1 tablet (100 mg) by mouth Once per day for 10 days. - nystatin (Mycostatin) 267644 UNIT/GM powder; Apply topically 2 times daily. Onychomycosis - terbinafine (LamISIL) 250 MG tablet; Take 1 tablet (250 mg) by mouth Once per day for 14 days. Primary hypertension - CBC auto differential; Future - Comprehensive Metabolic Panel; Future - Lipid Panel, Standard; Future - TSH W/Reflex to FT4; Future - Hepatitis C Antibody with Reflex to HCV, RNA, Quantitative, Real-Time PCR; Future Blood pressure is uncontrolled. We discussed the use of clonidine as the last resort given the factthat all medication tried so far has caused untoward side effect. Patient will make his research about this medication and call the office back if he wants a trial of clonidine. documented in this encounter Plan of Treatment Upcoming Encounters Date Type Department Care Team (Late st Contact Info) Description 07/18/2024 2:00 PM EDT Office Visit [facility] MED & PEDS [address] [place] [address] Kameron Kenney MD [address] [place] [address] Scheduled Orders Name Type Priority Associated Diagnoses Orde r Schedule CBC auto differential Lab Routine Primary hypertension Expected: 04/18/2024 (Approximate), Expires: 04/18/2025 Comprehensive Metabolic Panel Lab Routine Primary hypertension Expected: 04/18/2024 (Approximate), Expires: 04/18/2025 Lipid Panel, Standard Lab Routine Primary hypertension Expected: 04/18/2024 (Approximate), Expires: 04/18/2025 TSH W/Reflex to FT4 Lab Routine Primary hypertension Expected: 04/18/2024 (Approximate), Expires: 04/18/2025 Hepatitis C Antibody with Reflex to HCV, RNA, Quantitative, Real-Time PCR Lab Routine Primary hypertension Expected: 04/18/2024, Expires: 04/18/2025 documented as of this encounter Visit Diagnoses Diagnosis Genital warts- Primary Condyloma acuminatum Perianal candidiasis Onychomycosis Dermatophytosis of nail Primary hypertension Unspecified essential hypertension documented in this encounter Care Teams Leadership Intern Relationship Specialty Start Date End Date Kameron Kenney MD [address] [place] [id number] PCP - General Internal Medicine 09/05/18 documented as of this encounter
[2024-04-18 18:22] LABS: MANUAL DIFF FLAG NO
[2024-04-18 18:31] LABS: Basophils Absolute Auto 0.1 X10*3/uL (0.0-0.2); Basophils Percent Auto 0.8 % (0-2); Eosinophils Absolute Auto 0.3 X10*3/uL (0.0-0.4); Eosinophils Percent Auto 4.3 % (0-4); Hemoglobin 18.4 g/dl (14.0-18.0); Imm Gran Abs Auto 0.03 X10*3/uL (0.00-0.03); Imm Gran Pct Auto 0.5 % (0.0-0.4); Lymphocytes Absolute Auto 1.5 X10*3/uL (1.2-4.9); Lymphocytes Percent Auto 24.4 % (20-40); Mean Corpuscular HGB Conc 33.2 g/dl (31.0-36.0); Mean Corpuscular Hemoglobin 30.9 pg (27.0-33.0); Monocytes Absolute Auto 0.7 X10*3/uL (0.1-1.2); Monocytes Percent Auto 11.8 % (2-11); Neutrophils Absolute Auto 3.6 x10*3/uL (2.0-8.3); Neutrophils Percent Auto 58.2 % (45-73); Platelet Count 244 X10*3/uL (160-400); Red Blood Count 5.96 X10*6/uL (4.60-5.80); Red Cell Distribution Width 13.8 % (11.0-16.0); White Blood Count 6.1 X10*3/uL (4.8-10.8)
[2024-04-18 18:35] LABS: Hematocrit 55.4 % (42.0-52.0)
[2024-04-18 18:51] LABS: Alanine Aminotransferase 47 U/L (0-40); Albumin Level 4.6 g/dL (3.5-5.0); Alkaline Phosphatase 35 U/L (39-117); Anion Gap 11 (12-20); Aspartate Amino Transferase 43 U/L (5-37); Bilirubin Total 0.4 mg/dL (0.0-1.0); Blood Urea Nitrogen 19 mg/dL (9-16); Calcium 10.1 mg/dL (8.4-10.2); Carbon Dioxide 27 mmol/L (22-29); Chloride 107 mmol/L (96-108); Cholesterol 132 mg/dL (<200); Estimated Glomerular Filt Rate > 60; Glucose Random 69 mg/dL (60-115); HDL Cholesterol 34 mg/dL (>40); LDL Cholesterol Calculated 88 mg/dL (<100); Potassium 3.9 mmol/L (3.3-5.1); Sodium 141 mmol/L (135-145); Total Protein 7.6 g/dL (6.5-8.0); Triglycerides 51 mg/dL (<150)
[2024-04-18 19:06] LABS: TSH reflex Free T4 2.16 uIU/mL (0.32-4.0)
[2024-04-19 08:15] LABS: ~HepC Num1 10.99 S/CO (0.00-0.79); ~Hepatitis C Antibody Reactive (Nonreactive)
[2024-04-22 12:07] LABS: HCV Log PCR <1.18 NOT DETECTED Log IU/mL (NOT DETECTED); HepC Viral Load <15 NOT DETECTED IU/mL (NOT DETECTED)
== END 2024-04-18 14:35 | disposition home or self-care (01) ==
LOC: HO.CHCLDS 14:34
PROVIDERS: Visit Provider Internal Medicine
DX: I10 Essential (primary) hypertension (principal)
CPT/HCPCS: 36415; 80053; 80061; 84443; 85025; 86803; 87522

== ENCOUNTER 2024-05-14 13:11 | Outpatient (AMB) | payer OTHER, SELFPAY ==
[2024-05-14 13:13] VITALS: BP 140/87; PULSE 81; O2SAT 95; BMI 28.7
--- NOTE | 2024-05-14 13:13 | A.OFFVIS_ITS ---
Vital Signs 05/14/24 13:13 Height 6 ft 2 in Weight 223 lb 12.307 oz BMI 28.7 BP 140/87 H Blood Pressure Location Rt brachial Position Sitting Pulse 81 Pulse Source Doppler Pulse Oximetry (%) 95 Oxygen Delivery Method Room Air Intake Visit Reasons: asthma Allergies No Known Allergies [No Known Allergies*] Allergy (Verified 12/01/23 09:01) HPI HPI asthma: Details: 38-year-old gentleman, former approximately 10 pack year smoker, quit 2018 followed for environmental and seasonal allergies and severe persistent asthma, diagnosed at 7 years of age.? His symptoms are well controlled on Breo and albuterol MDI. He denies recent exacerbations. [facility] Medical History (Updated 12/01/23 @ 09:21 by Teresa Whatley PA-C) Severe persistent allergic asthma Environmental and seasonal allergies Family History (Updated 11/16/19 @ 10:22 by Brenda Ayers, ENRIQUE) Other No family history of chronic obstructive pulmonary disease Social History Years Smoked: 8-10 years ago Review of Systems Const Denies daytime sleepiness, Denies excessive sweating, Denies fatigue, Denies fever(s), Denies lethargy, Denies malaise, Denies night sweats, Denies snoring and Denies weight loss Eyes Denies blurry vision and Denies itchy eyes ENT Denies nasal congestion, Denies post nasal drip, Denies sinus pain, Denies sinus pressure and Denies other ( Thrush) Card Denies chest pain, Denies pedal edema, Denies dyspnea, Denies orthopnea and Denies paroxysmal nocturnal dyspnea Resp Denies cough, Denies hemoptysis, Denies excessive phlegm production, Denies dyspnea, Denies snoring and Denies wheezing GI Denies abdominal pain and Denies heartburn Musc Denies myalgias, Denies arthralgias and Denies joint swelling Skin/Breast Denies rash Neuro Denies memory loss and Denies seizure-like activity Psych Denies abnormal sleep pattern, Denies anxiety and Denies memory loss Endo Denies excessive sweating, Denies fatigue and Denies heat intolerance Gregory/Lymph Denies easy bruising Aller/Immun Denies itchy eyes, Denies seasonal rhinorrhea and Denies wheezing Physical Exam Vital Signs: Last Vital Signs Pulse 81 05/14/24 13:13 BP 140/87 H 05/14/24 13:13 Pulse Ox 95 05/14/24 13:13 Oxygen Delivery Method Room Air 05/14/24 13:13 BMI result Body Mass Index 28.7 Const General: no acute distress and alert Nutritional Appearance: not obese Orientation/consciousness: Other orientation findings ( oriented) HEENT Head: Yes atraumatic Eyes General: appearance normal, both eyes and all related structures Sclerae: sclerae normal EOM: EOMs intact bilaterally Neck Neck: Yes supple Lymphatic: no lymphadenopathy noted Resp Effort & Inspection: normal respiratory effort and no use of accessory muscles Auscultation: clear to auscultation bilaterally Cardio Rate: regular rate Rhythm: regular rhythm Heart sounds: no gallops, no murmurs and no rubs Skin General skin exam: other ( warm) Extrem General: No clubbing, No cyanosis and No edema Assessment & Plan Assessment & Plan (1) Severe persistent allergic asthma: Code(s): J45.50 - Severe persistent asthma, uncomplicated Category: Medical Plan: Well controlled on current regimen of Breo and albuterol MDI. Continue current regimen. Coding Level of Care Code Est Pt Level 3 (64662) Diagnoses Severe persistent allergic asthma J45.50
--- OUTSIDE RECORDS SUMMARY | 2024-05-14 15:58 | XMS_ITS | Encounter Summary ---
Author Organization [employer] Address [address] [place] [address] Care Team Providers Care Filling Room Operator Name Role Phone Kameron Kenney MD Primary Care Provider [phone]- [phone] Reason for Visit * Reason Onset Date Comments requesting call back 02/04/2022 Encounter Details Date Type Department Care Team (Late Contact Info) Description 02/04/2022 Telephone [facility] MEDICINE [address] [place] [address] Kameron Kenney MD [address] [place] [address] requesting call back Social History Tobacco Use [...] pt returning call from nurse, please call [phone] documented in this encounter Plan of Treatment Upcoming Encounters Date Type Department Care Team (Late Contact Info) Description 07/18/2024 2:00 PM EDT Office Visit [facility] CHC MED & PEDS [address] [place] [address] Kameron Kenney MD [address] [place] [address] documented as of this encounter Visit Diagnoses Not on filedocumented in this encounter Care Teams Filling Room Operator Relationship Specialty Start Date End Date Kameron Kenney MD [address] [place] [address] PCP - General Internal Medicine 09/05/18 documented as of this encounter
--- OUTSIDE RECORDS SUMMARY | 2024-05-14 15:58 | XMS_ITS | Encounter Summary ---
Author Organization [employer] Address [address] [address] Care Team Providers Care Director Of Global Sales Name Role Phone Kameron Kenney MD Primary Care Provider [phone]- [phone] Reason for Visit * Reason Onset Date Comments Med Refill 04/13/2023 Encounter Details Date Type Department Care Team (Late st Contact Info) Description 04/13/[address] [facility] MEDICINE [address] [place] [address] Kameron Kenney MD [address] [place] [id number] Med Refill Social History Tobacco Use Types [...] 500 MG tablet To be sent to: [facility]/pharmacy #[id number] - [place], [place] - [address] documented in this encounter Plan of Treatment Upcoming Encounters Date Type Department Care Team ([facility] st Contact Info) Description 07/18/2024 2:00 PM EDT Office Visit [facility] MED & PEDS [address] [place] [address] Kameron Kenney MD [address] [place] [address] documented as of this encounter Visit Diagnoses Not on filedocumented in this encounter Care Teams Director Of Global Sales Relationship Specialty Start Date End Date Kameron Kenney MD [address] [place] [address] PCP - General Internal Medicine 09/05/18 documented as of this encounter
--- OUTSIDE RECORDS SUMMARY | 2024-05-14 15:58 | XMS_ITS | Clinical Summary ---
Author Organization [employer] Address [address] [facility] 7t [place] [address] Care Team Providers Care Perforator Operator Oil Well Name Role Phone Kameron Kenney MD Primary Care Provider [phone]- [phone] Allergies Active Allergy Reactions Criticality Noted Date Comments Edilma Morfinon (Mauritian Melon) Swelling,Unknown 01/16/2017 Shellfish-Derived Products Hives 1 [...] 12 packet 11 4 08/18/19 25 Active nystatin (Mycostatin) 743928 UNIT/GM powderIndications :Perianal candidiasis Apply topically 2 times daily. 30 g 5 04/18/19 26 Active fluconazole (Diflucan) 100 MG tabletIndications :Perianal candidiasis Take 1 tablet (100 mg) by mouth Once per day for 10 days. 10 tablet 5 04/29/19 25 terbinafine (LamISIL) 250 MG tabletIndications :Onychomycosis Take 1 tablet (250 mg) by mouth Once per day for 14 days. 14 tablet 5 05/03/19 25 Active Problems Problem Noted Date Diagnosed Date Genital warts 10/07/2022 Hypertensive disorder 12/25/2020 Encounters Date Type Department Care Team Description 04/22/2024 Telephone [facility] [address] [place] [address] Estephania Mayorga RN 04/19/[address] [address] Kameron Kenney MD 04/18/2024 1:45 PM EST Office Visit [facility] [address] [place] [address] Kameron Kenney MD Genital warts (Primary Dx); Perianal candidiasis; Onychomycosis; Primary hypertension; Transaminitis; Elevated hemoglobin (CMS/HCC) 04/18/2024 Orders Only [facility] [address] [place] [address] Kameron Kenney MD 04/18/2024 Travel 04/15/2024 Telephone [facility] [address] [place] [address] Kameron Kenney MD Nurse Triage 03/21/2024 Telephone [facility] [address] [place] [address] Kameron Kenney MD 03/12/2024 Telephone [facility] [address] [place] [address] Kameron Kenney MD Nurse Triage from Last 3 Months Family History Medical History Relation Name Comments Diabetes type II Father Hypertension Father Asthma Maternal Grandfather Diabetes type II Maternal Grandfather Diabetes type II Paternal Grandmother Relation Name Status Comments Father Maternal Grandfather Paternal Grandmother Social History Tobacco Use Types Packs/Day Years Used Date Smoking Tobacco: Former Cigarettes 1 12 2 2016 Smokeless Tobacco: Current Tobacco Cessation:Ready to [...] Upcoming Encounters Date Type Department Care Team ([facility] st Contact Info) Description 07/18/2024 2:00 PM EDT Office Visit [facility] [address] [place] [address] Kameron Kenney MD [address] [place] [address] Health Maintenance Due Date Last Done Comments Depression Screening 1984 HIV Screening 1984 Family Planning (PISQ) 10/29/1999 Hepatitis A [...] 07/13/2027 07/12/2017, 10/21/1989, 06/20/1986, Additional history exists Lipid Panel 04/18/2029 04/18/2024 Zoster Vaccines (1 of 2) 2034 RSV [...] on patient's age to complete this topic Procedures Procedure Name Priority Date/Time Associated Diagnosis Comments HEPATITIS C VIRAL RNA, QUANTITATIVE, REAL-TIME PCR Routine 04/18/2024 2:35 PM EST HEPATITIS C AB W/REFL TO HCV RNA, QN, PCR Routine 04/18/2024 2:35 PM EST Primary hypertension TSH W/REFLEX TO FT4 Routine 04/18/2024 2 :35 PM EST Primary hypertension LIPID PANEL, STANDARD Routine 04/18/2024 2:35 PM EST Primary hypertension COMPREHENSIVE METABOLIC PANEL Routine 04/18/2024 2:35 PM EST Primary hypertension CBC WITH AUTO DIFFERENTIAL Routine 04/18/2024 2:35 PM EST Primary hypertension from Last 3 Months Results * TSH W/Reflex to FT4 (04/18/2024 2:35 PM EST) TSH reflex Free T4 2.16 0.32 - 4.0 uIU/mL [facility] Blood Venous blood specimen / Unknown 04/18/2024 2:35 PM EST 04/18/2024 6:11 PM EST us Kameron Kenney MD LAB BLOOD ORDERABLES Final Result [facility] [address] [place] [phone] * Hepatitis C Viral RNA, Quantitative, Real-Time PCR (04/18/2024 2:35 PM EST) Hepatitis C Viral Load <15 NOT DETECTED NOT DETECTED IU/mL [facility] HCV Log PCR <1.18 NOT DETECTED NOT DETECTED Log IU/mL [facility] Comment:For additional infor franci, please refer [email or web address](This link is being provided for informational/educational purposes only.)THIS TEST WAS PERFORMED AT:[facility] [place] [id number] HAWKINS MD 04/18/2024 2:35 PM EST 04/19/2024 11:18 AM EST us Kameron Kenney MD LAB BLOOD ORDERABLES Final Result [facility] [address] [place] [phone] * (ABNORMAL) CBC auto differential (04/18/2024 2:35 PM EST) White Blood Count 6.1 4.8 - 10.8 X10*3/uL [facility] Red Blood Count 5.96(H) 4.60 - 5.80 X10*6/uL [facility] Hemoglobin 18.4(H) 14.0 - 18.0 g/dl [facility] Hematocrit 55.4(H) 42.0 - 52.0 % [facility] Comment:Note: Hematocrits gr eater than 55% may interfere withcoagulation testing. Mean Corpuscular Volume 93.0 80.0 - 98.0 fL [facility] Mean Corpuscular Hemoglobin 30.9 27.0 - 33.0 pg [facility] Mean Corpuscular HGB Conc 33.2 31.0 - 36.0 g/dl [facility] Red Cell Distribution Width 13.8 11.0 - 16.0 % [facility] Platelet Count 244 160 - 400 X10*3/uL [facility] Mean Platelet Volume 11.0 9.4 - 12.4 fL [facility] Neutrophils Percent Auto 58.2 45 - 73 % [facility] Imm Gran Pct Auto 0.5(H) 0.0 - 0.4 % [facility] Lymphocytes Percent Auto 24.4 20 - 40 % [facility] Monocytes Percent Auto 11.8(H) 2 - 11 % [facility] Eosinophils Percent Auto 4.3(H) 0 - 4 % [facility] Basophils Percent Auto 0.8 0 - 2 % [facility] NRBC Pct Auto 0.0 0.0 - 0.2 /100WBC [facility] Neutrophils Absolute Auto 3.6 2.0 - 8.3 x10*3/uL [facility] Imm Gran Abs Auto 0.03 0.00 - 0.03 X10*3/uL [facility] Lymphocytes Absolute Auto 1.5 1.2 - 4.9 X10*3/uL [facility] Monocytes Absolute Auto 0.7 0.1 - 1.2 X10*3/uL [facility] Eosinophils Absolute Auto 0.3 0.0 - 0.4 X10*3/uL [facility] Basophils Absolute Auto 0.1 0.0 - 0.2 X10*3/uL [facility] NRBC Abs Auto 0.000 0.0 - 0.012 X10*3/uL [facility] Blood Venous blood specimen / Unknown 04/18/2024 2:35 PM EST 04/18/2024 6:11 PM EST Kameron Kenney MD LAB BLOOD ORDERABLES Final Result [facility] [address] [place] [phone] * (ABNORMAL) Hepatitis C Antibody with Reflex to HCV, RNA, Quantitative, Real- Time PCR (04/18/2024 2:35 PM EST) Hepatitis C Antibody Reactive( A) Nonreactive [facility] Comment:Presumptive evidence of antibodies to HCV. Blood Venous blood specimen / Unknown 04/18/2024 2:35 PM EST 04/18/2024 6:11 PM EST us Kameron Kenney MD LAB BLOOD ORDERABLES Final Result Performing Organization Address [facility]/ZIP Co de Phone Number [facility] [address] [place] [phone] * (ABNORMAL) Lipid Panel, Standard (04/18/2024 2:35 PM EST) Triglycerides 51 <150 mg/dL [facility] Comment:Desirable Triglyceri de: less than 150 mg/dLBorderline High Triglyceride 150-199 mg/dLHigh Triglyceride: 200-499 mg/dLVery High Triglyceride: greater than or equal to 5OO mg/dL Cholesterol 132 <200 mg/dL [facility] Comment:Desirable Cholestero l: less than 200 mg/dLBorderline High Cholesterol: 200-239 mg/dLHigh Cholesterol: greater than 239 mg/dL LDL Cholesterol Calculated 88 <100 mg/dL [facility] Comment:Desirable LDL: less than 100 mg/dLNear Optimal/Above Optimal LDL: 110- 129 mg/dLBorderline High LDL: 130-159 mg/dLHigh LDL: 160-189 mg/dLVery High LDL: greater than or equal to 190 mg/dL HDL Cholesterol 34(L) >40 mg/dL [facility] Comment:Desirable HDL: great er than 40 mg/dL Note: This HDL assay may give artificially low results in patients with liver disease. Blood Venous blood specimen / Unknown 04/18/2024 2:35 PM EST 04/18/2024 6:11 PM EST us Kameron Kenney MD LAB BLOOD ORDERABLES Final Result Performing Organization Address City/[facility]/ZIP Co de Phone Number [facility] [address] [place] [phone] * (ABNORMAL) Comprehensive Metabolic Panel (04/18/2024 2:35 PM EST) Sodium 141 135 - 145 mmol/L [facility] Potassium 3.9 3.3 - 5.1 mmol/L [facility] Chloride 107 96 - 108 mmol/L [facility] Carbon Dioxide 27 22 - 29 mmol/L [facility] Anion Gap 11(L) 12 - 20 [facility] Urea Nitrogen (BUN) 19(H) 9 - 16 mg/dL [facility] Creatinine, Serum 1.26 0.5 - 1.4 mg/dL [facility] Estimated Glomerular Filt Rate >60 [facility] Comment:Chronic Kidney Disea se: Estimated GFR < 60 mL/min/1.92r2Ggwlag Kidney Disease: Estimated GFR < 15 mL/min/1.73m2 Glucose 69 60 - 115 mg/dL [facility] Calcium 10.1 8.4 - 10.2 mg/dL [facility] Bilirubin, Total 0.4 0.0 - 1.0 mg/dL [facility] Aspartate Amino Transferase 43(H) 5 - 37 U/L [facility] Alanine Aminotransferase 47(H) 0 - 40 U/L [facility] Total Protein 7.6 6.5 - 8.0 g/dL [facility] Albumin Level 4.6 3.5 - 5.0 g/dL [facility] Alkaline Phosphatase 35(L) 39 - 117 U/L [facility] Blood Venous blood specimen / Unknown 04/18/2024 2:35 PM EST 04/18/2024 6:11 PM EST us Kameron Kenney MD LAB BLOOD ORDERABLES Final Result [facility] [address] [place] [phone] from Last 3 Months Insurance , [address] [place] [address] Care Teams Perforator Operator Oil Well Relationship Specialty Start Date End Date Kameron Kenney MD [address] [place] [phone] PCP - General Internal Medicine 09/05/18
--- OUTSIDE RECORDS SUMMARY | 2024-05-14 15:58 | XMS_ITS | Encounter Summary ---
Author Organization [employer] Address [address] [facility] [address], [place] [address] Care Team Providers Care Neuropsychology Medical Consultant Name Role Phone Kameron Kenney MD Primary Care Provider [phone]- [phone] Encounter Details Date Type Department Care Team ([facility] Contact Info) Description 10/18/2022 Orders Only [facility] [address] [place] [address] Kameron Kenney MD [address] [place] [address] Vaping nicotine dependence, non-tobacco product Social History [...] Upcoming Encounters Date Type Department Care Team ([facility] Contact Info) Description 07/18/2024 2:00 PM EDT Office Visit [facility] [address] [place] [address] Kameron Kenney MD [address] [place] [address] documented as of this encounter Visit Diagnoses Diagnosis Vaping nicotine dependence, non-tobacco product documented in this encounter Care Teams Neuropsychology Medical Consultant Relationship Specialty Start Date End Date Kameron Kenney MD [address] [place] [phone] PCP - General Internal Medicine 09/05/18 documented as of this encounter
--- OUTSIDE RECORDS SUMMARY | 2024-05-14 15:58 | XMS_ITS | Encounter Summary ---
Author Organization [employer] Address [address] [place] [address] Care Team Providers Care Drum Sealer Name Role Phone Kameron Kenney MD Primary Care Provider [phone]- [phone] Reason for Visit * Reason Comments Med Refill Encounter Details Date Type Department Care Team ([facility] Contact Info) Description 11/14/2022 Refill [facility] [address] [place] [address] Kameron Kenney MD [address] [place] [address] Social History Tobacco Use Types Packs/Day Years [...] Upcoming Encounters Date Type Department Care Team ([facility] Contact Info) Description 07/18/2024 2:00 PM EDT Office Visit [facility] [address] [place] [address] Kameron Kenney MD [address] [place] [address] documented as of this encounter Visit Diagnoses Not on filedocumented in this encounter Care Teams Drum Sealer Relationship Specialty Start Date End Date Kameron Kenney MD [address] [place] [phone] PCP - General Internal Medicine 09/05/18 documented as of this encounter
--- OUTSIDE RECORDS SUMMARY | 2024-05-14 15:58 | XMS_ITS | Encounter Summary ---
Author Organization [employer] Address [address] [facility] [address] [place] [address] Care Team Providers Care Delivery Coordinator Name Role Phone Kameron Kenney MD Primary Care Provider [phone] Encounter Details Date Type Department Care Team ([facility] st Contact Info) Description 04/22/2024 Telephone [facility] [address] [place] [address] Estephania Mayorga RN Social History Tobacco Use Types Packs/Day Years Used Date Smoking Tobacco: Former Cigarettes 1 2016 Smokeless Tobacco: Current Comments:Vape Housing Stability Answer Date Recorded What is your housing situation today? I have joselise wilcox 05/10/[address] you [...] encounter Miscellaneous Notes * Telephone Encounter - Estephania Mayorga RN - 04/22/2024 9:24 AM EST Tc x2 to pt to let them know per PCP Hepatitis C positive. We are waiting for the viral load. If elevated we will refer to infectious disease to consider treatment. No answer and unable to lvm to pt. Pt is to f/u with PCP prn. * Telephone Encounter - Estephania Mayorga RN - 04/22/2024 9:23 AM EST ----- Message from Kameron Kenney MD sent at 04/19/2024 4:52 PM EST ----- Hepatitis C positive. We are waiting for the viral load. If elevated we will refer to infectious disease to consider treatment. ----- Message ----- From: Interface, Lab Results In Sent: 04/18/2024 6:36 PM EST To: Kameron Kenney MD documented in this encounter Plan of Treatment Upcoming Encounters Date Type Department Care Team (Late st Contact Info) Description 07/18/2024 2:00 PM EDT Office Visit [facility] [address] [place] [address] Kameron Kenney MD [address] [place] [address] documented as of this encounter Visit Diagnoses Not on filedocumented in this encounter Care Teams Delivery Coordinator Relationship Specialty Start Date End Date Kameron Kenney MD [address] [place] [address] PCP - General Internal Medicine 09/05/18 documented as of this encounter
--- OUTSIDE RECORDS SUMMARY | 2024-05-14 15:58 | XMS_ITS | Encounter Summary ---
Author Organization [employer] Address [address] [address] Care Team Providers Care Building Associate Name Role Phone Kameron Kenney MD Primary Care Provider [phone] Encounter Details Date Type Department Care Team ([facility] Contact Info) Description 02/10/2022 Orders Only [facility] [address] [place] [address] Kameron Kenney MD [address] [place] [address] Herpes (Primary Dx) Social History Tobacco Use [...] Description 07/18/2024 2:00 PM EDT Office Visit [facility] [address] [place], [place] [phone] Kameron Kenney MD [address] [place] [address] documented as of this encounter Visit Diagnoses Diagnosis Herpes- Primary Herpes simplex without mention of complication documented in this encounter Care Teams Building Associate Relationship Specialty Start Date End Date Kameron Kenney MD [address] [place] [address] PCP - General Internal Medicine 09/05/18 documented as of this encounter
--- OUTSIDE RECORDS SUMMARY | 2024-05-14 15:58 | XMS_ITS | Encounter Summary ---
Author Organization [employer] Address [address] [place] [address] Care Team Providers Care Medical Claims Assistant Name Role Phone Reilly Kenney MD Primary Care Provider [phone] Reason for Referral * Imaging (Routine) - Authorized Specialty Diagnoses / Procedures Referred By Alcon burgess Referred To Contact Radiology Diagnoses Transaminitis Procedures US Abdomen Complete Reilly Kenney MD [address] [place] [phone] Phone: tel: fax: [address] Phone: tel: fax: Referral ID Status Reason Start Date Expiration Date V isits Requested Visits Authorized [id number] Authorized 04/19/2024 04/19/2025 1 1 Reason for Visit * Reason Comments Multiple concerns Encounter Details Date Type Department Care Team (Late st Contact Info) Description 04/18/2024 1:45 PM EST Office Visit [facility]EDS [address], [place] [phone] Reilly Kenney MD [address] [place] [address] Genital warts (Primary Dx); Perianal candidiasis; Onychomycosis; Primary hypertension; Transaminitis; Elevated hemoglobin (CMS/HCC) Social History Tobacco Use Types Packs/Day Years Used Date Smoking Tobacco: Former Cigarettes 1 12 2 005 - 2017 Smokeless Tobacco: Current Comments:Vape Housing Stability Answer [...] documented in this encounter Progress Notes * Reilly Kenney MD - 04/18/2024 1:45 PM EST Subjective Patient ID: Brett Baum is a 38 y.o. male who presents [...] to visit. Allergies Allergen Reactions Charentais Melon (Portuguese Melon) Swelling and Unknown Shellfish-Derived Products Hives [...] day for 10 days. - nystatin (Mycostatin) [id number] UNIT/GM powder; Apply topically 2 times daily. [...] trial of clonidine. documented in this encounter Miscellaneous Notes * Addendum Note - Reilly Kenney MD - 04/18/2024 1:45 PM ESTAddended by: REILLY KENNEY on: 04/19/2024 08:41 AM Modules accepted: Orders documented in this encounter Plan of Treatment Upcoming Encounters Date Type Department Care Team (Late st Contact Info) Description 07/18/2024 2:00 PM EDT Office Visit [facility] MED & PEDS [address] [place] [address] Reilly Kenney MD [address] [place] [address] Scheduled Orders Name Type Priority Associated Diagnoses Orde r Schedule US Abdomen Complete Imaging Routine Transaminitis Expected: 04/19/2024, Expires: 04/19/2025 Hepatitis A,B,C Profile Lab Routine Transaminitis Expected: 04/19/2024, Expires: 04/19/2025 Ferritin Lab Routine Transaminitis Elevated hemoglobin (CMS/HCC) Expected: 04/19/2024, Expires: 04/19/2025 Transferrin Lab Routine Transaminitis Elevated hemoglobin (CMS/HCC) Expected: 04/19/2024 (Approximate), Expires: 04/19/2025 documented as of this encounter Procedures Procedure Name Priority Date/Time Associated Diagnosis Comments TSH W/REFLEX TO FT4 Routine 04/18/2024 2 :35 PM EST Primary hypertension CBC WITH AUTO DIFFERENTIAL Routine 04/18/2024 2:35 PM EST Primary hypertension HEPATITIS C AB W/REFL TO HCV RNA, QN, PCR Routine 04/18/2024 2:35 PM EST Primary hypertension LIPID PANEL, STANDARD Routine 04/18/2024 2:35 PM EST Primary hypertension COMPREHENSIVE METABOLIC PANEL Routine 04/18/2024 2:35 PM EST Primary hypertension documented in this encounter Results * (ABNORMAL) Hepatitis C Antibody with Reflex to HCV, RNA, Quantitative, Real- Time PCR (04/18/2024 2:35 PM EST) Hepatitis C Antibody Reactive( A) Nonreactive [facility] Comment:Presumptive evidence of antibodies to HCV. Blood Venous blood specimen / Unknown 04/18/2024 2:35 PM EST 04/18/2024 6:11 PM EST us Reilly Kenney MD LAB BLOOD ORDERABLES Final Result Performing Organization Address City/[facility]/ZIP Co de Phone Number [facility] [address] [place] [phone] * TSH W/Reflex to FT4 (04/18/2024 2:35 PM EST) TSH reflex Free T4 2.16 0.32 - 4.0 uIU/mL [facility] Blood Venous blood specimen / Unknown 04/18/2024 2:35 PM EST 04/18/2024 6:11 PM EST us Reilly Kenney MD LAB BLOOD ORDERABLES Final Result Performing Organization Address [facility]/ZIP Co de Phone Number [facility] [address] [place] [phone] * (ABNORMAL) Lipid Panel, Standard (04/18/2024 2:35 PM EST) Triglycerides 51 <150 mg/dL [facility] Comment:Desirable Triglyceri de: less than 150 mg/dLBorderline High Triglyceride 150-199 mg/dLHigh Triglyceride: 200-499 mg/dLVery High Triglyceride: greater than or equal to 5OO mg/dL Cholesterol 132 <200 mg/dL [facility] Comment:Desirable Cholestero l: less than 200 mg/dLBorderline High Cholesterol: 200-239 mg/dLHigh Cholesterol: greater than 239 mg/dL LDL Cholesterol Calculated 88 <100 mg/dL [facility] Comment:Desirable LDL: less than 100 mg/dLNear Optimal/Above Optimal LDL: 110- 129 mg/dLBorderline High LDL: 130-159 mg/dLHigh LDL: 160-189 mg/dLVery High LDL: greater than or equal to 190 mg/dL HDL Cholesterol 34(L) >40 mg/dL [facility] Comment:Desirable HDL: great er than 40 mg/dL Note: This HDL assay may give artificially low results in patients with liver disease. Blood Venous blood specimen / Unknown 04/18/2024 2:35 PM EST 04/18/2024 6:11 PM EST us Reilly Kenney MD LAB BLOOD ORDERABLES Final Result [facility] [address] [place], [place] [phone] * (ABNORMAL) Comprehensive Metabolic Panel (04/18/2024 2:35 PM EST) Sodium 141 135 - 145 mmol/L [facility] Potassium 3.9 3.3 - 5.1 mmol/L [facility] Chloride 107 96 - 108 mmol/L [facility] Carbon Dioxide 27 22 - 29 mmol/L [facility] Anion Gap 11(L) 12 - 20 [facility] Urea Nitrogen (BUN) 19(H) 9 - 16 mg/dL [facility] Creatinine, Serum 1.26 0.5 - 1.4 mg/dL [facility] Estimated Glomerular Filt Rate >60 [facility] Comment:Chronic Kidney Disea se: Estimated GFR < 60 mL/min/1.94b0Lugeip Kidney Disease: Estimated GFR < 15 mL/min/1.73m2 Glucose 69 60 - 115 mg/dL [facility] Calcium 10.1 8.4 - 10.2 mg/dL [facility] Bilirubin, Total 0.4 0.0 - 1.0 mg/dL [facility] Aspartate Amino Transferase 43(H) 5 - 37 U/L [facility] Alanine Aminotransferase 47(H) 0 - 40 U/L [facility] Total Protein 7.6 6.5 - 8.0 g/dL [facility] Albumin Level 4.6 3.5 - 5.0 g/dL [facility] Alkaline Phosphatase 35(L) 39 - 117 U/L [facility] Blood Venous blood specimen / Unknown 04/18/2024 2:35 PM EST 04/18/2024 6:11 PM EST us Reilly Kenney MD LAB BLOOD ORDERABLES Final Result [facility] [address] [place] [phone] * (ABNORMAL) CBC auto differential (04/18/2024 2:35 PM EST) White Blood Count 6.1 4.8 - 10.8 X10*3/uL [facility] Red Blood Count 5.96(H) 4.60 - 5.80 X10*6/uL [facility] Hemoglobin 18.4(H) 14.0 - 18.0 g/dl [facility] Hematocrit 55.4(H) 42.0 - 52.0 % [facility] Comment:Note: Hematocrits gr eater than 55% may interfere withcoagulation testing. Mean Corpuscular Volume 93.0 80.0 - 98.0 fL [facility] Mean Corpuscular Hemoglobin 30.9 27.0 - 33.0 pg [facility] Mean Corpuscular HGB Conc 33.2 31.0 - 36.0 g/dl [facility] Red Cell Distribution Width 13.8 11.0 - 16.0 % [facility] Platelet Count 244 160 - 400 X10*3/uL [facility] Mean Platelet Volume 11.0 9.4 - 12.4 fL [facility] Neutrophils Percent Auto 58.2 45 - 73 % [facility] Imm Gran Pct Auto 0.5(H) 0.0 - 0.4 % [facility] Lymphocytes Percent Auto 24.4 20 - 40 % [facility] Monocytes Percent Auto 11.8(H) 2 - 11 % [facility] Eosinophils Percent Auto 4.3(H) 0 - 4 % [facility] Basophils Percent Auto 0.8 0 - 2 % [facility] NRBC Pct Auto 0.0 0.0 - 0.2 /100WBC [facility] Neutrophils Absolute Auto 3.6 2.0 - 8.3 x10*3/uL [facility] Imm Gran Abs Auto 0.03 0.00 - 0.03 X10*3/uL [facility] Lymphocytes Absolute Auto 1.5 1.2 - 4.9 X10*3/uL [facility] Monocytes Absolute Auto 0.7 0.1 - 1.2 X10*3/uL [facility] Eosinophils Absolute Auto 0.3 0.0 - 0.4 X10*3/uL [facility] Basophils Absolute Auto 0.1 0.0 - 0.2 X10*3/uL [facility] NRBC Abs Auto 0.000 0.0 - 0.012 X10*3/uL [facility] Blood Venous blood specimen / Unknown 04/18/2024 2:35 PM EST 04/18/2024 6:11 PM EST Reilly Kenney MD LAB BLOOD ORDERABLES Final Result Performing Organization Address City/State/[facility] Co de Phone Number [facility] [address] [place] [phone] documented in this encounter Visit Diagnoses Diagnosis Genital warts- Primary Condyloma acuminatum Perianal candidiasis Onychomycosis Dermatophytosis of nail Primary hypertension Unspecified essential hypertension Transaminitis Nonspecific elevation of levels of transaminase or lactic acid dehydrogenase (LDH) Elevated hemoglobin (CMS/HCC) documented in this encounter Care Teams Medical Claims Assistant Relationship Specialty Start Date End Date Reilly Kenney MD [address] [place] [phone] PCP - General Internal Medicine 09/05/18 documented as of this encounter
--- OUTSIDE RECORDS SUMMARY | 2024-05-14 15:58 | XMS_ITS | Encounter Summary ---
Author Organization [employer] Address [address] [facility] [address] [place] [address] Care Team Providers Care Surgical Services Director Name Role Phone Kameron Kenney MD Primary Care Provider [phone] Encounter Details Date Type Department Care Team (Late st Contact Info) Description 04/19/2024 Telephone [facility] MEDIC[facility] [address] [place] [address] Kaemron Kenney MD [address] [place] [address] Social History Tobacco Use Types Packs/Day Years [...] encounter Miscellaneous Notes * Telephone Encounter - Bria Cornell RN - 04/19/2024 2:49 PM EST TC placed to pt to inform and advise of below PCP message. Pt advised of below PCP recommendations.Advised pt to complete labs and remain well hydrated. Pt verbalized understanding and denies questions or concerns at this time. ----- Message from Kameron Kenney MD sent at 04/19/2024 8:11 AM EST ----- Please call: 1) patient has elevated hemoglobin and hematocrit level on his most recent blood work. We need to check his ferritin level and his transferrin saturation to assess if he has any excess iron. 2) abnormal liver test. Will need to check an hepatitis panel and order an ultrasound of the abdomen to check his liver. 3) mildly abnormal kidney function. Patient is to remain well-hydrated. 4) normal cholesterol level. documented in this encounter Plan of Treatment Upcoming Encounters Date Type Department Care Team (Late st Contact Info) Description 07/18/2024 2:00 PM EDT Office Visit [facility] MED & PEDS [address] [place] [address] Kameron Kenney MD [address] [place] [address] documented as of this encounter Visit Diagnoses Not on filedocumented in this encounter Care Teams Surgical Services Director Relationship Specialty Start Date End Date Kameron Kenney MD [address] [place] [address] PCP - General Internal Medicine 09/05/18 documented as of this encounter
--- OUTSIDE RECORDS SUMMARY | 2024-05-14 15:58 | XMS_ITS | Encounter Summary ---
Author Organization [employer] Address [address] [facility] [address] [place] [address] Care Team Providers Care Tune Up Mechanic Name Role Phone Kameron Kenney MD Primary Care Provider [phone] Reason for Visit * Reason Onset Date Comments Nurse Triage 04/15/2024 Encounter Details Date Type Department Care Team ([facility] st Contact Info) Description 04/15/2024 Telephone [facility] MED & PEDS [address] [place] [address] Kameron Kenney MD [address] [place] [address] Nurse Triage Social History Tobacco Use Types Packs/Day Years Used Date Smoking Tobacco: Former Cigarettes 2016 Smokeless Tobacco: Current Comments:Vape Housing Stability Answer Date Recorded What is your housing situation today? I have jose jeri 05/10/[address] you li [...] t he electric, gas, oil or water [employer] threatened to shut off services in your [...] Upcoming Encounters Date Type Department Care Team ([facility] st Contact Info) Description 07/18/2024 2:00 PM EDT Office Visit [facility] MED & PEDS [address] [place] [address] Kameron Kenney MD [address] [place], [place] [phone] documented as of this encounter Visit Diagnoses Not on filedocumented in this encounter Care Teams Tune Up Mechanic Relationship Specialty Start Date End Date Kameron Kenney MD [address] [place] [phone] PCP - General Internal Medicine 09/05/18 documented as of this encounter
--- OUTSIDE RECORDS SUMMARY | 2024-05-14 15:58 | XMS_ITS | Encounter Summary ---
Author Organization [employer] Address [address] [facility] [address] [address] Care Team Providers Care Station Jailer Name Role Phone Kameron Kenney MD Primary Care Provider [phone] Encounter Details Date Type Department Care Team (Latest Contact Info) Description 10/02/2018 Abstract [facility] CONVERSIONS Dental, Provider, DDS Social History [...] Description 07/18/2024 2:00 PM EDT Office Visit [facility] MED & PEDS [address] [place] [address] Kameron Kenney MD [address] [place] [address] documented as of this encounter Visit Diagnoses Not on filedocumented in this encounter Care Teams Station Jailer Relationship Specialty Start Date End Date Kameron Kenney MD [address] [place] [address] PCP - General Internal Medicine 09/05/18 documented as of this encounter
--- OUTSIDE RECORDS SUMMARY | 2024-05-14 15:58 | XMS_ITS | Encounter Summary ---
Author Organization [employer] Address [address] [facility] [address] [place] [address] Care Team Providers Care Glassware Verifier Name Role Phone Kameron Kenney MD Primary Care Provider [phone] Encounter Details Date Type Department Care Team ([facility] st Contact Info) Description 04/18/2024 Orders Only [facility] MED & PEDS [address] [place], [place] [phone] Kameron Kenney MD [address] [place] [address] Social History Tobacco Use Types Packs/Day Years [...] AM EDT documented as of this encounter Progress Notes * Cleopatra Maxwell RN - 04/18/2024 11:59 PM EST TC to patient. Unable to leave message due to not having voicemail set up. documented in this encounter Plan of Treatment Upcoming Encounters Date Type Department Care Team (Late st Contact Info) Description 07/18/2024 2:00 PM EDT Office Visit [facility] MED & PEDS [address] [place] [address] Kameron Kenney MD [address] [place] [address] documented as of this encounter Procedures Procedure Name Priority Date/Time Associated Diagnosis Comments HEPATITIS C VIRAL RNA, QUANTITATIVE, REAL-TIME PCR Routine 04/18/2024 2:35 PM EST documented in this encounter Results * Hepatitis C Viral RNA, Quantitative, Real-Time PCR (04/18/2024 2:35 PM EST) Hepatitis C Viral Load <15 NOT DETECTED NOT DETECTED IU/mL [facility] HCV Log PCR <1.18 NOT DETECTED NOT DETECTED Log IU/mL [facility] Comment:For additional infor mation, please refer [email or web address]/faq/[email or web address](This link is being provided for informational/educational purposes only.)THIS TEST WAS PERFORMED AT:[email or web address] [place] [phone] HAWKINS MD 04/18/2024 2:35 PM EST 04/19/2024 11:18 AM EST Kameron Kenney MD LAB BLOOD ORDERABLES Final Result [facility] [address] [place] [phone] [phone] documented in this encounter Visit Diagnoses Not on filedocumented in this encounter Care Teams Glassware Verifier Relationship Specialty Start Date End Date Kameron Kenney MD [address] [place] [phone] PCP - General Internal Medicine 09/05/18 documented as of this encounter
--- OUTSIDE RECORDS SUMMARY | 2024-05-14 15:58 | XMS_ITS | Encounter Summary ---
Author Organization [employer] Address [address] [facility] [place] [address] Care Team Providers Care Branch Customer Service Representative Name Role Phone Kameron Kenney MD Primary Care Provider [phone] Encounter Details Date Type Department Care Team [...] Description 07/18/2024 2:00 PM EDT Office Visit [facility] MED & PEDS [address] [place] [address] Kameron Kenney MD [address] [place] [address] documented as of this encounter Visit Diagnoses Not on filedocumented in this encounter Care Teams Branch Customer Service Representative Relationship Specialty Start Date End Date Kameron Kenney MD [address] [place] [address] PCP - General Internal Medicine 09/05/18 documented as of this encounter
--- OUTSIDE RECORDS SUMMARY | 2024-05-14 15:58 | XMS_ITS | Encounter Summary ---
Author Organization [employer] Address [address] [facility] [address] [place] [address] Care Team Providers Care Metals Sales Representative Name Role Phone Kameron Kenney MD Primary Care Provider [phone] Reason for Visit * Reason Onset Date Comments Nurse Triage 03/12/2024 Encounter Details Date Type Department Care Team ([facility] st Contact Info) Description 03/12/2024 Telephone [facility] MED & PEDS [address] [place], [place] [phone] Kameron Kenney MD [address] [place] [address] Nurse Triage Social History Tobacco Use Types [...] t he electric, gas, oil or water [employer] threatened to shut off services in your [...] 2:00 PM EDT Office Visit [facility] MED & PEDS [address] [place] [address] Kameron Kenney MD [address] [place] [address] documented as of this encounter Visit Diagnoses Not on filedocumented in this encounter Care Teams Metals Sales Representative Relationship Specialty Start Date End Date Kameron Kenney MD [address] [place] [address] PCP - General Internal Medicine 09/05/18 documented as of this encounter
== END 2024-05-14 13:26 | disposition home or self-care (01) ==
LOC: HO.HPS 13:11
PROVIDERS: PCP Internal Medicine; Visit Provider Internal Medicine Pulmonary Disease
DX: J45.50 Severe persistent asthma, uncomplicated (principal)
CPT/HCPCS: 99213

== ENCOUNTER → 2024-05-14 13:11 | Outpatient (BNVA) | payer OTHER, SELFPAY | PROVIDERS: PCP Internal Medicine; Visit Provider Internal Medicine Pulmonary Disease ==